=== PATIENT | female | born 1955 | race Caucasian/White ===

== ENCOUNTER 2024-10-12 05:53 | Day surgery (SDC) | payer MEDICARE ==
[2024-09-14 14:41] VITALS: BMI 38.7
[2024-10-12] MEDS ORDERED: Bupivacaine/Epinephrine 0.25% 30 ML VIAL ONE (07:01)
[2024-10-12] MEDS ORDERED: Lidocaine 1% PF 5 ML VIAL ONE (07:13)
[2024-10-12] MEDS ORDERED: Rocuronium Bromide 10 MG/ML (10ML VIAL) ONE (07:13)
[2024-10-12] MEDS ORDERED: Fentanyl 100 MCG/2 ML VIAL ONE (07:13)
[2024-10-12] MEDS ORDERED: PROPOFOL 20 ML ONE (07:13)
[2024-10-12] MEDS ORDERED: Propofol 1,000 MG/100 ML VIAL IV ONE (07:18)
[2024-10-12] MEDS ORDERED: Sevoflurane 250 ML INH ANEST BOTTLE ONE (07:21)
[2024-10-12] MEDS ORDERED: CEFAZOLIN 2 GM VIAL ONE (07:23)
[2024-10-12] MEDS ORDERED: Dexamethasone 4 mg/ml Vial ONE (07:49)
[2024-10-12] MEDS ORDERED: ePHEDrine Sulfate 50 MG/10 ML VIAL ONE (07:58)
[2024-10-12] MEDS ORDERED: Dexmedetomidine 200 MCG/2 ML VIAL ONE (07:59)
[2024-10-12] MEDS ORDERED: Labetalol HCl 100 MG/20 ML VIAL ONE (08:04)
[2024-10-12] MEDS ORDERED: SUGAMMADEX SODIUM 200 MG/2 ML VIAL ONE (08:37)
[2024-10-12] MEDS ORDERED: Ketorolac Tromethamine 30 MG (1 mL) VIAL ONE (08:37)
[2024-10-12] MEDS ORDERED: Ondansetron PF 4 MG/2 ML Vial ONE (08:37)
[2024-10-12] MEDS ORDERED: HYDROcodone/Acetaminophen 5/325 mg Tablet ONE (09:45)
== END 2024-10-12 10:30 | disposition home or self-care (01) ==
LOC: CSHSDC 05:53
PROVIDERS: ATTEND Surgery
PROC: 0WUF4JZ Supplement Abdominal Wall with Synthetic Substitute, Percutaneous Endoscopic Approach (ICD-10-PCS; principal; 2024-10-12)
PROC: 0JBF0ZZ Excision of Left Upper Arm Subcutaneous Tissue and Fascia, Open Approach (ICD-10-PCS; 2024-10-12)
DX: K43.9 Ventral hernia without obstruction or gangrene (principal); R22.32 Localized swelling, mass and lump, left upper limb; I10 Essential (primary) hypertension; E11.9 Type 2 diabetes mellitus without complications; E78.5 Hyperlipidemia, unspecified; M10.9 Gout, unspecified; G47.33 Obstructive sleep apnea (adult) (pediatric); Z90.89 Acquired absence of other organs; Z98.890 Other specified postprocedural states; Z88.0 Allergy status to penicillin; Z88.1 Allergy status to other antibiotic agents; Z79.84 Long term (current) use of oral hypoglycemic drugs; Z79.85 Long-term (current) use of injectable non-insulin antidiabetic drugs; Z79.899 Other long term (current) drug therapy
CPT/HCPCS: 49593; 24075 ×2; C1781; J1100; J1885; J2405; J2704 ×2; J3010; S2900; 88304